=== PATIENT | male | born 1955 | race Caucasian/White ===

== ENCOUNTER 2020-06-17 10:33 | Day surgery (SDC) | payer MEDICARE ==
[~2020-06-17] VITALS: Ht 167.6 cm; Wt 105.2 kg
[~2020-06-17 10:33] MED LIST: ATOR40TA PO; CARV6.25 PO; ENTRESTO 49 MG1 EACH PO; FURO20 PO; GLIP5 PO; JARDIANCE25 MG PO; METF500 PO; Percocet 5-3251 EACH PO; SOTO80 PO; SPIR25 PO; Voltaren100 GM TOP; WARF5 PO
[2020-06-17] MEDS ORDERED: ELIQUIS2.5 MG (10:47)
== END 2020-06-17 13:40 | disposition home or self-care (01) ==
LOC: ORSCSDS 10:33
PROVIDERS: Internal Medicine Gastroenterology
PROC: 0DBH8ZX Excision of Cecum, Via Natural or Artificial Opening Endoscopic, Diagnostic (ICD-10-PCS; principal; 2020-06-17 12:00)
PROC: 0DBK8ZX Excision of Ascending Colon, Via Natural or Artificial Opening Endoscopic, Diagnostic (ICD-10-PCS; principal; 2020-06-17 12:00)
PROC: 0DB68ZX Excision of Stomach, Via Natural or Artificial Opening Endoscopic, Diagnostic (ICD-10-PCS; principal; 2020-06-17 12:00)
PROC: 0DB58ZX Excision of Esophagus, Via Natural or Artificial Opening Endoscopic, Diagnostic (ICD-10-PCS; principal; 2020-06-17 12:00)
DX: K62.5 Hemorrhage of anus and rectum (principal); D64.9 Anemia, unspecified; D12.0 Benign neoplasm of cecum; D12.2 Benign neoplasm of ascending colon; K76.0 Fatty (change of) liver, not elsewhere classified; K64.4 Residual hemorrhoidal skin tags; K57.30 Diverticulosis of large intestine without perforation or abscess without bleeding; K76.6 Portal hypertension; K31.89 Other diseases of stomach and duodenum; K44.9 Diaphragmatic hernia without obstruction or gangrene; G47.33 Obstructive sleep apnea (adult) (pediatric); E66.01 Morbid (severe) obesity due to excess calories; Z68.37 Body mass index [BMI] 37.0-37.9, adult; Z79.01 Long term (current) use of anticoagulants; Z79.899 Other long term (current) drug therapy
CPT/HCPCS: 82947; 88305; 88342; J0330; J0461; J2001; J2250; J2405; J2704; J7120

== ENCOUNTER 2021-12-26 11:15 | Day surgery (SDC) | payer MEDICARE ==
[~2021-12-26] VITALS: Ht 165.1 cm; Wt 107.0 kg
[~2021-12-26 11:15] MED LIST changes: +ELIQUIS2.5 MG
--- NOTE | 2021-12-26 12:24 | NUR ---
12/26/21 1224 Genesis Brannon CALL LIGHT WITHIN REACH.
--- NOTE | 2021-12-26 13:50 | NUR ---
12/26/21 1350 Penny Charles 1 MG EPI ADDED TO EACH OF THE FIRST 3 BAGS OF LR PER ORDER FOR IRRIGATION OPSITE
--- NOTE | 2021-12-26 15:00 | NUR ---
12/26/21 1500 Ella Boss FACE TENT PLACED ON PT DUE TO DESATURATION, O2 SATS IN LOW 90'S. DECREASED O2 FROM 10L TO 5L PT MAINTAING SATURATION 98%.
--- NOTE | 2021-12-26 15:28 | NUR ---
12/26/21 1528 Ella Boss GOING TO GIVE 25MCG OF FENTANYL
== END 2021-12-26 16:29 | disposition home or self-care (01) ==
LOC: ORSCSDS 11:15
PROVIDERS: Orthopaedic Surgery
PROC: 0RNJ4ZZ Release Right Shoulder Joint, Percutaneous Endoscopic Approach (ICD-10-PCS; principal; 2021-12-26 13:00)
PROC: 3E0U3GC Introduction of Other Therapeutic Substance into Joints, Percutaneous Approach (ICD-10-PCS; principal; 2021-12-26 13:00)
PROC: 0LM14ZZ Reattachment of Right Shoulder Tendon, Percutaneous Endoscopic Approach (ICD-10-PCS; principal; 2021-12-26 13:00)
PROC: 0RBJ4ZZ Excision of Right Shoulder Joint, Percutaneous Endoscopic Approach (ICD-10-PCS; principal; 2021-12-26 13:00)
DX: M75.121 Complete rotator cuff tear or rupture of right shoulder, not specified as traumatic (principal); M75.21 Bicipital tendinitis, right shoulder; M75.41 Impingement syndrome of right shoulder; S46.111A Strain of muscle, fascia and tendon of long head of biceps, right arm, initial encounter; I10 Essential (primary) hypertension; E11.9 Type 2 diabetes mellitus without complications; G47.33 Obstructive sleep apnea (adult) (pediatric); I42.9 Cardiomyopathy, unspecified; E66.01 Morbid (severe) obesity due to excess calories; Z68.39 Body mass index [BMI] 39.0-39.9, adult; Z79.84 Long term (current) use of oral hypoglycemic drugs; Z79.899 Other long term (current) drug therapy; Z79.01 Long term (current) use of anticoagulants
CPT/HCPCS: 29827; 29826; 29823; 0232T; 82947; A9270; C1713; C9781; J0171; J0690; J1100; J1885; J2250; J2370; J2405; J2704; J3010; J7120